=== PATIENT | male | born 2000 | race Caucasian/White ===

== ENCOUNTER 2024-05-06 23:05 | Emergency (ER) | payer SELFPAY ==
[2024-05-06 23:34] VITALS: BP 117/74; PULSE 95; TEMP 36.8; O2SAT 97; BMI 21.2
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
[2024-05-07] MEDS: MORPHINE SULFATE 4 MG/ML VIAL IM (00:37)
[2024-05-07] MEDS: KETAMINE HCL 500 MG/10 ML VIAL 75 MG IV (01:44)
[2024-05-07 01:45] VITALS: BP 132/73; PULSE 117; O2SAT 100
[2024-05-07 01:46] VITALS: BP 132/73; PULSE 117; O2SAT 100
--- NOTE | 2024-05-07 01:55 | XR_ITS ---
The [address] [address] Patient Name: ERICK ROSSI MRN: [id number] date: 2000 Sex: M Assigned Patient Location: ER Current Patient Location: Accession/Order Number: [id number] Exam Date: 05/07/2024 01:58 Report Date: 05/07/2024 03:00 At the request of: MINA GORE Procedure: XR ankle RT 2V Examination:XR ankle RT 2V INDICATION:post reduction COMPARISON:Right ankle dated 05/07/2024. TECHNIQUE:2 projections of the right ankle are submitted. FINDINGS:There has been interval reduction and casting of the right ankle. Despite reduction, there is still dislocation of the right ankle with some minimal improved alignment. A few tiny fragments are present concerning for fracture fragments. XR/XR ankle RT 2V IMPRESSION: Minimal improvement in alignment of right ankle dislocation. Electronically authenticated by: GENTRY KING Date: 05/07/2024 03:00
[2024-05-07 02:30] VITALS: BP 139/97; PULSE 92; O2SAT 100
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
[2024-05-07 02:57] VITALS: BP 139/80; PULSE 120; O2SAT 100
[2024-05-07] MEDS: KETAMINE HCL 500 MG/5 ML VIAL 100 MG IV (02:57)
--- NOTE | 2024-05-07 03:09 | XR_ITS ---
The [address] [address] Patient Name: ERICK ROSSI MRN: [id number] date: 2000 Sex: M Assigned Patient Location: ER Current Patient Location: ER Accession/Order Number: [id number] Exam Date: 05/07/2024 03:14 Report Date: 05/07/2024 04:02 At the request of: MINA GORE Procedure: XR ankle RT 2V EXAM: XR ankle RT 2V HISTORY: post reduction COMPARISON: 05/07/2024. TECHNIQUE: AP and lateral views of the right ankle performed. FINDINGS: There is an overlying splint. There is persistent anterior and slightly lateral dislocation of the talus. There are small bone fragments adjacent to the lateral aspect of the talar dome and inner margin of the medial malleolus. There is moderately severe soft tissue swelling at the ankle. XR/XR ankle RT 2V IMPRESSION: There is an overlying splint. Persistent anterior and slightly lateral dislocation of the talus. Small bone fragments adjacent to the lateral aspect of the talar dome and inner margin of the medial malleolus. Moderately severe soft tissue swelling at the ankle. Electronically authenticated by: BRANDT THOMSON Date: 05/07/2024 04:02
[2024-05-07 03:21] VITALS: BP 144/96; PULSE 120; O2SAT 99
--- NOTE | 2024-05-07 03:24 | PC.NURSE ---
Dr Trevino has spoke with this patient and family about this patient must be transferred to trauma center to have ankle reduction
[2024-05-07 03:47] VITALS: BP 136/84; PULSE 96; TEMP 36.8; O2SAT 99
== END 2024-05-07 04:05 | disposition left against medical advice (07) ==
PROVIDERS: Emergency Provider Internal Medicine
DX: S93.04XA Dislocation of right ankle joint, initial encounter (principal); V29.99XA Rider (driver) (passenger) of other motorcycle injured in unspecified traffic accident, initial encounter; Z53.29 Procedure and treatment not carried out because of patient's decision for other reasons
CPT/HCPCS: 27840; 73600; 73610; 96372; 96374; 96376; 99284; J2270